=== PATIENT | male | born 1955 | race Caucasian/White ===

== ENCOUNTER 2017-05-16 13:56 | Inpatient (IN) | payer MEDICAID, OTHER ==
[~2017-05-16] VITALS: Ht 162.6 cm; Wt 81.6 kg
[~2017-05-16 13:56] MED LIST: ASPI-264 PO; FUR40T GT; GABA-497 PO; IBUP600T27 PO; LISI-646 PO; METF-489 PO; METO25TA5 PO; POTA10TA51 PO; PRAV20TA3 GT; SPIR25TA89 PO
[2017-05-16 14:56] LABS: Basophils # (auto) 0 uL; Basophils % (auto) 0.3 % (0.0-2.0); CONDITION Y; Eosinophils # (auto) 0.1 uL; Eosinophils % (auto) 1.1 % (0.0-7.0); Hematocrit 35.9 % (41.0-53.0); Hemoglobin 12.7 g/dL (13.5-17.5); Lymphocytes # (auto) 0.9 uL; Lymphocytes % (auto) 11.4 % (10.0-50.0); Mean Corpuscular Hemoglobin 29.9 pg (28.0-32.0); Mean Corpuscular Hgb Conc. 35.4 g/dL (32.0-36.0); Mean Corpuscular Volume 84.5 fL (80.0-100.0); Mean Platelet Volume 7.4 fL (7.4-10.4); Monocytes # (auto) 0.4 uL; Monocytes % (auto) 5.8 % (0.0-12.0); Neutrophils # (auto) 6.3 uL; Neutrophils % (auto) 81.4 % (37.0-80.0); Platelet Count (auto) 175 10^3/uL (140-450); Red Cell Distribution Width 14.2 % (11.6-16.0); White Blood Cell 7.8 10^3/uL (4.4-10.8)
[2017-05-16 15:13] LABS: INR 1.1 (0.9-1.15)
[2017-05-16 15:22] LABS: Albumin 4.2 g/dL (3.4-5.0); Aspartate Aminotransferase 24 U/L (15-37); BUN/Creatinine Ratio 15.4; Blood Urea Nitrogen 19 mg/dL (7-18); Calcium 9.2 mg/dL (8.5-10.1); Carbon Dioxide 27 mmol/L (21-32); GFR African American 77 mL/min; GFR Non-African American 64 mL/min; Glucose 211 mg/dL (74-106); Magnesium 1.6 mg/dL (1.6-2.6)
[2017-05-16 15:25] LABS: Alkaline Phosphatase 58 U/L (45-117); Anion Gap 11 (5-15); Bilirubin, Total 2.1 mg/dL (0.2-1.0); Chloride 101 mmol/L (98-107); Sodium 139 mmol/L (136-145); Total Protein 7.5 g/dL (6.4-8.2)
[2017-05-16] MEDS ORDERED: SODIUM CHLORIDE 0.9% 1,000 ML IV ONE ×2 (19:30→22:00)
[2017-05-16] MEDS ORDERED: HYDROcodone-ACET 7.5/325MG TAB PO ONE (20:30)
[2017-05-16] MEDS ORDERED: ASPirin-EC 325mg tab PO ONE (20:45)
[2017-05-16] MEDS ORDERED: POTA10SO11 PO (20:59)
[2017-05-16] MEDS ORDERED: ATOR1TAB PO (20:59)
[2017-05-16] MEDS ORDERED: CLOP75TA41 PO (20:59)
[2017-05-16] MEDS ORDERED: CARV6.2551 PO (20:59)
[2017-05-16] MEDS ORDERED: INSU70IN3 SC (21:02)
[2017-05-16] MEDS ORDERED: ENOXAPARIN SOD 40 MG/0.4 ML SYRINGE SC SCH (21:56)
[2017-05-16] MEDS ORDERED: DEXTROSE (50%) 50ML SYRG IV PRN (22:00)
[2017-05-16] MEDS ORDERED: MORPHINE SULFATE 4 MG/ML SYRG IV PRN (22:00)
[2017-05-16] MEDS ORDERED: NITROGLYCERIN 0.4 MG SL TAB SL PRN (22:00)
[2017-05-16] MEDS ORDERED: LACTULOSE 20Gm/30ML SOLN PO PRN (22:00)
[2017-05-16] MEDS ORDERED: ATORVASTATIN 20 MG TAB PO SCH (22:00)
[2017-05-16] MEDS: CARVEDILOL 3.125 MG TAB PO SCH (22:23)
[2017-05-16] MEDS: GABAPENTIN 300 MG CAP PO SCH (22:24)
[2017-05-16] MEDS: ACCU-CHEK COMFORT CURVE STRIP VI SCH (23:29)
[2017-05-16] MEDS: InsuLIN REG 1unit/0.01ml Soln (100units/ml) SC SCH (23:33)
[2017-05-17 01:00] VITALS: BP 132/87
[2017-05-17 05:00] VITALS: BP 112/69
[2017-05-17] MEDS: GABAPENTIN 300 MG CAP PO SCH ×2 (05:52→14:00)
[2017-05-17] MEDS: ACCU-CHEK COMFORT CURVE STRIP VI SCH ×2 (05:52→12:00)
[2017-05-17] MEDS: InsuLIN REG 1unit/0.01ml Soln (100units/ml) SC SCH ×2 (05:53→12:00)
[2017-05-17 06:08] LABS: Basophils # (auto) 0 uL; Basophils % (auto) 0.3 % (0.0-2.0); CONDITION Y; Eosinophils # (auto) 0.1 uL; Eosinophils % (auto) 2.7 % (0.0-7.0); Hematocrit 30.9 % (41.0-53.0); Lymphocytes # (auto) 1.4 uL; Lymphocytes % (auto) 25.9 % (10.0-50.0); Mean Corpuscular Hemoglobin 29.9 pg (28.0-32.0); Mean Corpuscular Hgb Conc. 35.4 g/dL (32.0-36.0); Mean Corpuscular Volume 84.5 fL (80.0-100.0); Mean Platelet Volume 8.5 fL (7.4-10.4); Monocytes # (auto) 0.5 uL; Monocytes % (auto) 9.9 % (0.0-12.0); Neutrophils # (auto) 3.3 uL; Neutrophils % (auto) 61.2 % (37.0-80.0); Platelet Count (auto) 158 10^3/uL (140-450); Red Cell Distribution Width 14.1 % (11.6-16.0); White Blood Cell 5.4 10^3/uL (4.4-10.8)
[2017-05-17 06:58] LABS: Albumin 3.1 g/dL (3.4-5.0); BUN/Creatinine Ratio 14.3; Calcium 7.9 mg/dL (8.5-10.1); Potassium 4.1 mmol/L (3.5-5.1); Total Protein 5.7 g/dL (6.4-8.2)
[2017-05-17 09:00] VITALS: BP 108/63
[2017-05-17] MEDS: CARVEDILOL 3.125 MG TAB PO SCH (09:24)
[2017-05-17] MEDS ORDERED: ASPirin 325 MG TAB PO SCH (10:00)
[2017-05-17] MEDS ORDERED: POTASSIUM CHL 10 Meq TABLET PO SCH (10:00)
[2017-05-17] MEDS ORDERED: PANTOPRAZOLE 40 MG TAB PO SCH (10:00)
[2017-05-17] MEDS ORDERED: SPIRONOLACTONE 25 MG TAB PO SCH (10:00)
[2017-05-17] MEDS ORDERED: CLOPIDOGREL BISULFATE 75 MG TAB PO SCH (10:00)
[2017-05-17] MEDS ORDERED: LISINOPRIL 20 MG TAB PO SCH (10:00)
[2017-05-17 12:14] VITALS: BP 119/67
== END 2017-05-17 18:18 | disposition home or self-care (01) | DRG 861 ==
LOC: ER 14:10 → TELE 14:11 → TELE-CENTR 05-17
PROVIDERS: ADMIT Family Medicine; ATTEND Family Medicine
DX: R41.82 Altered mental status, unspecified (principal); E11.42 Type 2 diabetes mellitus with diabetic polyneuropathy; I11.0 Hypertensive heart disease with heart failure; I50.9 Heart failure, unspecified; H53.47 Heteronymous bilateral field defects; E86.0 Dehydration; F17.200 Nicotine dependence, unspecified, uncomplicated; I25.10 Atherosclerotic heart disease of native coronary artery without angina pectoris; I25.2 Old myocardial infarction; I69.398 Other sequelae of cerebral infarction; Z82.49 Family history of ischemic heart disease and other diseases of the circulatory system; Z83.3 Family history of diabetes mellitus; Z79.82 Long term (current) use of aspirin; Z90.89 Acquired absence of other organs; Z71.89 Other specified counseling; Z80.9 Family history of malignant neoplasm, unspecified; I25.5 Ischemic cardiomyopathy
CPT/HCPCS: 36415; 70450; 71010; 80053; 80061; 80320; 82140; 82962; 83036; 83735; 84484; 85025; 85610; 93005; 94761; 96360; 96361; J1815